=== PATIENT | female | born 1985 | race Caucasian/White ===

== ENCOUNTER 2023-07-18 09:28 | Emergency (ER) | payer MEDICAID ==
[~2023-07-18] VITALS: Ht 165.1 cm; Wt 68.0 kg
[2023-07-18 09:35] VITALS: O2SAT 99
[2023-07-18] MEDS ORDERED: HYDR-3735 MT (10:04)
[2023-07-18 10:22] VITALS: BP 108/76; PULSE 70; RESP 18; TEMP 98.2
== END 2023-07-18 10:23 | disposition home or self-care (01) ==
LOC: ER 10:20
DX: F41.9 Anxiety disorder, unspecified (principal); Z98.890 Other specified postprocedural states
CPT/HCPCS: 81025; 99283